=== PATIENT | male | born 1955 | race African-American/Black ===

== ENCOUNTER 2023-05-20 01:06 | Emergency (ER) | payer OTHER, MEDICAID ==
[~2023-05-20] VITALS: Ht 182.9 cm; Wt 77.0 kg
[~2023-05-20 01:06] MED LIST: ALBU90AE IH; FLUT16SP15 BOTHNSTRLS; TIOT4MIS2 IH
[2023-05-20] MEDS ORDERED: IPRATROPIUM BROMIDE (0.02%) 0.5MG/2.5ML NEB HHN STA (01:16)
[2023-05-20] MEDS: ALBUTEROL (0.083%) 2.5MG/3ML NEB HHN SCH ×3 (01:34→02:28)
[2023-05-20 01:35] VITALS: PULSE 93; RESP 18; O2SAT 99
[2023-05-20 02:04] VITALS: PULSE 96; RESP 18; O2SAT 100
[2023-05-20 02:28] VITALS: PULSE 95; RESP 18; O2SAT 100
[2023-05-20 03:29] LABS: BASOPHILS % 0.5 % (0.0-2.0); DIFFERENTIAL COMMENT 0; EOSINOPHILS % 0.2 % (0.0-5.0); HEMATOCRIT. 38.9 % (42.0-52.0); HEMOGLOBIN. 12.1 g/dL (14.0-18.0); LYMPHOCYTES % 27.2 % (20.0-50.0); MEAN CORPUSCULAR HEMOGLOBIN 23.2 pg (28.0-32.0); MEAN CORPUSCULAR HGB CONC 31.1 g/dL (31.0-37.0); MEAN CORPUSCULAR VOLUME 74.6 fL (80.0-94.0); MEAN PLATELET VOLUME 7.8 fl (7.4-10.4); MONOCYTES % 5.3 % (2.0-8.0); NEUTROPHILS % 66.8 % (40.0-76.0); PLATELET 212 x1000/uL (130-400); RED BLOOD CELL COUNT 5.22 mill/uL (4.7-6.1); RED CELL DISTRIBUTION WIDTH 15.1 % (11.6-14.6); WHITE BLOOD COUNT 9.6 x1000/uL (4.5-11.0)
[2023-05-20 03:36] LABS: CHLORIDE 104 mEq/L (98-107); INDEX HEMOLYSI 1 (1-3); INDEX ICTERIC 1 (1-4); INDEX LIPEMIC 1 (1-3); POTASSIUM 3.9 mEq/L (3.5-5.1); SODIUM 137 mEq/L (136-145)
[2023-05-20 03:46] LABS: ALANINE AMINOTRANSFERASE 44 IU/L (13-61); ALBUMIN 4.2 g/dL (3.4-5.0); ASPARTATE AMINOTRANSFERASE 30 IU/L (15-37); BILIRUBIN TOTAL 0.7 mg/dL (0.1-1.0); CARBON DIOXIDE 26 mEq/L (21-32); ETHANOL BLOOD < 10 mg/dL (<10); GLUCOSE 123 mg/dL (70-105); NT PRO B-TYPE NATRIURETIC PEP 49 pg/mL (5-125); PROTEIN TOTAL 7.7 g/dL (6.0-8.3); TROPONIN I HIGH SENSITIVITY 8 ng/L (<78); UREA NITROGEN BLOOD 25 mg/dL (7-21)
[2023-05-20] MEDS ORDERED: GUAI600T26 MT (04:44)
[2023-05-20 10:55] VITALS: BP 155/91; PULSE 94; RESP 15; TEMP 98.6
== END 2023-05-20 10:55 | disposition home or self-care (01) ==
LOC: ER 01:06
DX: R09.3 Abnormal sputum (principal); J44.1 Chronic obstructive pulmonary disease with (acute) exacerbation; I11.0 Hypertensive heart disease with heart failure; I50.9 Heart failure, unspecified; Z20.822 Contact with and (suspected) exposure to COVID-19
CPT/HCPCS: 80053; 80320; 83880; 85025; 84484; 36415; 71045; 94640; 93005; 99285; 87426; C9803; G0480